=== PATIENT | male | born 1950 | race Caucasian/White ===

== ENCOUNTER 2019-11-25 15:28 | Emergency (ER) | payer MEDICARE, OTHER ==
--- NOTE | 2019-11-25 16:18 | ER Document Report ---
ED Medical Screen (RME) - General Chief Complaint: Abdominal Pain Stated Complaint: ABDOMINAL PAIN Time Seen by Provider: 11/25/19 16:12 Primary Care Provider: AMOS NESBITT DO [Primary Care Provider] - Follow up as needed TRAVEL OUTSIDE OF THE [place] IN LAST 30 DAYS: No - HPI Notes: 11/25/19 16:17 Patient is a 69-year-old male with a history of chronic neck pain who presents complaining of lower abdominal pain that is been intermittent over the past month, but worsening over the past couple days. Patient states that he is able to urinate without any difficulty and is having normal bowel movements. He has been able to tolerate p.o. No fever. No vomiting. I have treated and performed a rapid initial assessment of this patient. A comprehensive ED assessment and evaluation of the patient, analysis of test results and completion of medical decision making process will be conducted by additional ED providers. PHYSICAL EXAMINATION: GENERAL: Well-appearing, well-nourished and in no acute distress. A&Ox4. Answers questions appropriately. Abdomen: Limited exam in triage, abdomen is soft with mild tenderness noted to his lower abdomen little more on the left vs right, but near his umbilicus as well. - Related Data Allergies/Adverse Reactions: Sulfa (Sulfonamide Antibiotics) Adverse Reaction (Unknown, Verified 11/25/19 16:10) family hx allergy Home Medications: methadone HCl 10 mg. simvastatin 20mg. sertraline 100mg. ibuprofen 800 mg. amlodipine 10 mg Past Medical History - Social History Chew tobacco use (# tins/day): No Frequency of alcohol use: None Drug Abuse: None - Past Medical History Cardiac Medical History: Reports: Hx Hypercholesterolemia, Hx Hypertension - meds for years Denies: Hx Coronary Artery Disease, Hx Heart Attack Pulmonary Medical History: Denies: Hx Asthma, Hx Bronchitis, Hx COPD, Hx Pneumonia Neurological Medical History: Denies: Hx Cerebrovascular Accident, Hx Seizures GI Medical History: Denies: Hx Hepatitis, Hx Hiatal Hernia, Hx Ulcer Musculoskeltal Medical History: Denies Hx Arthritis Infectious Medical History: Denies: Hx Hepatitis Past Surgical History: Reports: Hx Orthopedic Surgery - neck surgery. Denies: Hx Open Heart Surgery, Hx Pacemaker - Immunizations Hx Diphtheria, Pertussis, Tetanus Vaccination: Yes Physical Exam - Vital signs Vitals: Temp Pulse Resp BP Pulse Ox 98.2 F 73 18 157/75 H 95 11/25/19 15:42 11/25/19 15:42 11/25/19 15:42 11/25/19 15:42 11/25/19 15:42 Course - Vital Signs Vital signs: Temp Pulse Resp BP Pulse Ox 98.2 F 73 18 157/75 H 95 11/25/19 15:42 11/25/19 15:42 11/25/19 15:42 11/25/19 15:42 11/25/19 15:42 Doctor's Discharge - Discharge Referrals: AMOS NESBITT, [Primary Care Provider] - Follow up as needed
[2019-11-25 17:21] LABS: ABSOLUTE EOSINOPHILS # (AUTO) 0.1 10^3/uL (0.0-0.6); ABSOLUTE LYMPHOCYTES (AUTO) 1.4 10^3/uL (0.5-4.7); ABSOLUTE MONOCYTES (AUTO) 0.5 10^3/uL (0.1-1.4); ABSOLUTE NEUT (AUTO) 4.1 10^3/uL (1.7-8.2); BASOPHILS % (AUTO) 0.5 % (0-2); EOSINOPHILS % (AUTO) 2.1 % (0-6); HEMATOCRIT 41.9 % (37.9-51.0); HEMOGLOBIN 14.6 g/dL (13.5-17.0); LYMPHOCYTES % (AUTO) 23.1 % (13-45); MEAN CORPUSCULAR HGB CONC 34.8 g/dL (32.0-36.0); MEAN CORPUSCULAR VOLUME 95 fl (80-97); MONOCYTES % (AUTO) 8.3 % (3-13); PLATELET COUNT 259 10^3/uL (150-450); RED BLOOD COUNT 4.43 10^6/uL (4.35-5.55); RED CELL DISTRIBUTION WIDTH 14.7 % (11.5-14.0); TOTAL CELLS COUNTED % (AUTO) 100 %; WHITE BLOOD COUNT 6.2 10^3/uL (4.0-10.5)
[2019-11-25 17:29] LABS: APPEARANCE,URINE CLOUDY; BILIRUBIN,URINE NEGATIVE (NEGATIVE); COLOR,URINE YELLOW; GLUCOSE, URINE NEGATIVE (NEGATIVE); KETONES,URINE NEGATIVE (NEGATIVE); PROTEIN,URINE NEGATIVE (NEGATIVE); UROBILINOGEN,URINE NEGATIVE mg/dL (<2.0)
[2019-11-25 17:42] LABS: ALBUMIN 4.9 g/dL (3.5-5.0); ALKALINE PHOSPHATASE 87 U/L (38-126); ANION GAP 14 (5-19); ASPARTATE AMINO TRANSFERASE 37 U/L (17-59); BILIRUBIN,DIRECT 0.3 mg/dL (0.0-0.4); BILIRUBIN,TOTAL 0.5 mg/dL (0.2-1.3); BLOOD UREA NITROGEN 20 mg/dL (7-20); CALCIUM 9.5 mg/dL (8.4-10.2); CARBON DIOXIDE 27 mmol/L (22-30); CHLORIDE 101 mmol/L (98-107); GLUCOSE 91 mg/dL (75-110); POTASSIUM 4.1 mmol/L (3.6-5.0); TOTAL PROTEIN 8.6 g/dL (6.3-8.2)
--- NOTE | 2019-11-25 18:57 | ER Document Report ---
ED General - General Chief Complaint: Abdominal Pain Stated Complaint: ABDOMINAL PAIN Time Seen by Provider: 11/25/19 16:12 Primary Care Provider: AMOS NESBITT DO [Primary Care Provider] - Follow up as needed Notes: 69-year-old male presents with lower abdominal discomfort that is been intermittent for 1 month and worse the last few days. Nothing makes it worse and nothing makes it better. Patient denies any nausea/vomiting/diarrhea/constipation, chest pain, shortness of breath, fever, chills, urinary symptoms. Patient states he is still passing gas and denies any surgeries to his abdomen. Patient's only past medical history is chronic neck pain and surgeries to same. Patient is followed by neurosurgeon for this. TRAVEL OUTSIDE OF THE [place] IN LAST 30 DAYS: No - Related Data Allergies/Adverse Reactions: Sulfa (Sulfonamide Antibiotics) Adverse Reaction (Unknown, Verified 11/25/19 16:10) family hx allergy Home Medications: methadone HCl 10 mg. simvastatin 20mg. sertraline 100mg. ibuprofen 800 mg. amlodipine 10 mg Past Medical History - Social History Smoking Status: Current Every Day Smoker Chew tobacco use (# tins/day): No Frequency of alcohol use: None Drug Abuse: None Family History: None Patient has suicidal ideation: No Patient has homicidal ideation: No - Past Medical History Cardiac Medical History: Reports: Hx Hypercholesterolemia, Hx Hypertension - meds for years Denies: Hx Coronary Artery Disease, Hx Heart Attack Pulmonary Medical History: Denies: Hx Asthma, Hx Bronchitis, Hx COPD, Hx Pneumonia Neurological Medical History: Denies: Hx Cerebrovascular Accident, Hx Seizures GI Medical History: Denies: Hx Hepatitis, Hx Hiatal Hernia, Hx Ulcer Musculoskeletal Medical History: Denies Hx Arthritis Infectious Medical History: Denies: Hx Hepatitis Past Surgical History: Reports: Hx Orthopedic Surgery - neck surgery. Denies: Hx Open Heart Surgery, Hx Pacemaker - Immunizations Hx Diphtheria, Pertussis, Tetanus Vaccination: Yes Review of Systems - Review of Systems Notes: Constitutional: Negative for fever. HENT: Negative for sore throat. Eyes: Negative for visual changes. Cardiovascular: Negative for chest pain. Respiratory: Negative for shortness of breath. Gastrointestinal: Positive for lower abdominal discomfort. Negative for vomiting or diarrhea. Genitourinary: Negative for dysuria. Musculoskeletal: Negative for back pain. Skin: Negative for rash. Neurological: Negative for headaches, weakness or numbness. 10 point ROS negative except as marked above and in HPI. Physical Exam - Vital signs Vitals: Temp Pulse Resp BP Pulse Ox 98.2 F 73 18 157/75 H 95 11/25/19 15:42 11/25/19 15:42 11/25/19 15:42 11/25/19 15:42 11/25/19 15:42 - Notes Notes: GENERAL: Well-appearing, well-nourished and in no acute distress. HEAD: Atraumatic, normocephalic. EYES: Extraocular movements intact, sclera anicteric, conjunctiva are normal. NECK: Normal range of motion, supple without lymphadenopathy or JVD. LUNGS: Breath sounds clear to auscultation bilaterally and equal. No wheezes rales or rhonchi. HEART: Regular rate and rhythm without murmurs, rubs or gallops. ABDOMEN: Soft, nontender. No guarding, no rebound. No masses appreciated. EXTREMITIES: Normal range of motion, no pitting or edema. No clubbing or cyanosis. NEUROLOGICAL: Cranial nerves II through XII grossly intact. Normal speech, normal gait. PSYCH: Normal mood, normal affect. SKIN: Warm, Dry, normal turgor, no rashes or lesions noted. Course - Re-evaluation Re-evalutation: 11/25/19 69-year-old male presents with lower abdominal discomfort without any associated symptoms. Patient is nontoxic, well-appearing. Abdomen is soft nontender. PE is otherwise unremarkable. Patient is afebrile. Patient's lab work is reassuring. CBC is within normal limits UA shows no with no leuk ocytosis or anemia. CMP is within normal limits. UA shows no infection. CT abdomen/pelvis was pending. Lactic was added on. Patient offered pain medication in ER however declined at this time. 11/25/19 19:31 CT abdomen/pelvis shows possible diverticulitis/colitis. Printed out copy of this report and explained to patient and patient's . Patient to be prescribed Augmentin twice daily for 7 days. Patient given close follow-up with PCP. Strict return precautions discussed/given. Patient also to be given prescription for Bentyl for abdominal discomfort/pain. Patient and patient's wi fe voiced understanding and agree with plan of care. - Vital Signs Vital signs: Temp Pulse Resp BP Pulse Ox 98.2 F 73 18 157/75 H 95 11/25/19 15:42 11/25/19 15:42 11/25/19 15:42 11/25/19 15:42 11/25/19 15:42 - Laboratory Result Diagrams: 11/25/19 16:58 11/25/19 16:58 Laboratory results interpreted by me: 11/25/19 11/25/19 16:58 16:58 RDW 14.7 H Total Protein 8.6 H Discharge - Discharge Clinical Impression: Diverticulitis Condition: Stable Disposition: HOME, SELF-CARE Instructions: Diverticulitis ([facility]) Additional Instructions: Please take Augmentin as prescribed and finish all doses even if you feel better. Please take Bentyl as needed for abdominal discomfort. Please follow- up with your primary care doctor in 1 week. Return to ER for any worsening symptoms, including nausea/vomiting, fever, worsening abdominal pain, diarrhea, constipation, chest pain, shortness of breath, or any other symptoms that are concerning to you. Prescriptions: Amox Tr/Potassium Clavulanate [Augmentin 875-125 Tablet] 1 tab PO BID #14 tablet Dicyclomine HCl [Bentyl 20 mg Tablet] 20 mg PO QID #40 tablet Referrals: AMOS NESBITT DO [Primary Care Provider] - Follow up in 1 week
--- NOTE | 2019-11-25 19:17 | RADIOLOGY REPORT (SQ) ---
EXAM DESCRIPTION: CT ABD/PELVIS WITH IV ONLY COMPLETED DATE/TIME: 11/25/2019 6:33 pm REASON FOR STUDY: Lower abd pain COMPARISON: CT, lung cancer screening 08/19/2018. TECHNIQUE: CT scan of the abdomen and pelvis performed using helical scanning technique with dynamic intravenous contrast injection. No oral contrast. Images reviewed with lung, soft tissue, and bone windows. Reconstructed coronal and sagittal MPR images reviewed. Delayed images for evaluation of the urinary system also acquired. All images stored on PACS. All CT scanners at this facility use dose modulation, iterative reconstruction, and/or weight based d osing when appropriate to reduce radiation dose to as low as reasonably achievable (ALARA). [facility]: Dose Right [facility]: CareDose [facility]: Dose Right [facility]: Teradose 4D [facility]: Peeractive CONTRAST TYPE AND DOSE: 77 mL Omnipaque 350- low osmolar. RENAL FUNCTION: BUN 20, creatinine 0.9 RADIATION DOSE: CT Rad equipment meets quality standard of care and radiation dose reduction techniq ues were employed. CTDIvol: 5.6 - 7.0 mGy. DLP: 633 mGy-cm.. LIMITATIONS: None. FINDINGS: LOWER CHEST: Two stable 5 mm solid pulmonary nodule within the right lower lobe (images 8 and 16). LIVER: Normal size. No masses. No dilated ducts. SPLEEN: Normal size. No focal lesions. PANCREAS: No masses. No significant calcifications. No adjacent inflammation or peripancreatic fluid collections. Dilated pancreatic duct measuring 5 mm. GALLBLADDER: No identified stones by CT criteria. No inflammatory changes to suggest cholecystitis. ADRENAL GLANDS: No significant masses or asymmetry. RIGHT KIDNEY AND URETER: No solid masses. No significant calcifications. No hydronephrosis or hyd roureter. LEFT KIDNEY AND URETER: No solid masses. Superior pole renal cyst measuring up to 3.7 cm No signific ant calcifications. No hydronephrosis or hydroureter. AORTA AND VESSELS: Abdominal aortic ectasia. No dissection. Renal arteries, SMA, celiac without sten osis. RETROPERITONEUM: No retroperitoneal adenopathy, hemorrhage or masses. BOWEL AND PERITONEAL CAVITY: Mild colon bowel wall thickening, mucosal enhancement, and adjacent fat stranding at the descending/sigmoid colon junction, on a background of mild diverticular disease. APPENDIX: Normal. PELVIS: No mass. No free fluid. Normal bladder. ABDOMINAL WALL: No masses. Prominent fat within the inguinal canals. BONES: No significant or acute findings. OTHER: No other significant finding. IMPRESSION: Short-segment descending/sigmoid colitis, on a background of mild diverticular disease, possible representing acute diverticulitis. Other inflammatory/infectious cannot be excluded. Stable right lower lobe pulmonary nodules. TECHNICAL DOCUMENTATION: JOB ID: [id number] Quality ID # [id number]: Final reports with documentation of one or more dose reduction techniques (e.g., Au tomated exposure control, adjustment of the mA and/or kV according to patient size, use of iterative reconstruction technique) 2010 [employer]- All Rights Reserved Reading location - IP/workstation name: [email or web address]
[2019-11-25 19:56] VITALS: BP 148/87
== END 2019-11-25 19:55 | disposition home or self-care (01) ==
LOC: ER 15:28
DX: K57.92 Diverticulitis of intestine, part unspecified, without perforation or abscess without bleeding (principal); R10.9 Unspecified abdominal pain; R10.30 Lower abdominal pain, unspecified; M54.2 Cervicalgia; G89.29 Other chronic pain; F17.200 Nicotine dependence, unspecified, uncomplicated; Z79.899 Other long term (current) drug therapy; I10 Essential (primary) hypertension
CPT/HCPCS: 36415; 74177; 80053; 81001; 83605; 83690; 85025; 99284